=== PATIENT | male | born 1960 ===

== ENCOUNTER 2016-05-15 20:13 | Emergency (ER) | payer OTHER ==
[2016-05-15 20:13] VITALS: BMI 24.2
[2016-05-15 20:51] VITALS: BP 125/74; PULSE 94; TEMP 97.8; O2SAT 97
--- NOTE | 2016-05-15 21:25 | C.PDOC ---
History Of Present Illness 55 y/omale with hx dm, c/o worsening pain to his right neck/shoulder area that radiates down arm to 2nd and third fingers with a tingling sensation. pt has had this pain for some time, with no specific preceding injury. pt has rx for physical therapy, but hasn't made an appointment yet. pt sts pain worse today. pt not taking any medication for pain. Time Seen by Provider: 05/15/16 20:53 Chief Complaint (Nursing): Upper Extremity Problem/Injury History Per: Patient History/Exam Limitations: no limitations Onset/Duration Of Symptoms: Days Current Symptoms Are (Timing): Worse Quality: Other (tingling) Severity: Moderate Pain Scale Rating Of: 8 Exacerbating Factor(s): Strenuous Use Of Affected Area Past Medical History Reviewed: Historical Data, Nursing Documentation, Vital Signs Vital Signs: Last Vital Signs Temp 97.8 F 05/15/16 20:44 Pulse 94 H 05/15/16 20:44 Resp 16 05/15/16 20:44 BP 125/74 05/15/16 20:44 Pulse Ox 97 05/15/16 21:33 - Medical History PMH: Diabetes Surgical History: Appendectomy Family History: States: Unknown Family Hx - Social History Hx Tobacco Use: Yes Hx Alcohol Use: Yes Hx Substance Use: No - Immunization History Hx Tetanus Toxoid Vaccination: No Hx Influenza Vaccination: No Hx Pneumococcal Vaccination: No Review Of Systems Constitutional: Negative for: Fever, Chills Musculoskeletal: Positive for: Neck Pain, Shoulder Pain, Arm Pain, Hand Pain. Negative for: Back Pain, Foot Pain Skin: Negative for: Rash Neurological: Positive for: Numbness. Negative for: Weakness Physical Exam - Physical Exam Appears: Non-toxic, No Acute Distress Skin: Normal Color, Warm, Dry Head: Atraumatic, Normacephalic Neck: Normal ROM, No Midline Cervical Tenderness, Paracervical Tenderness ( right side) Chest: Symmetrical, No Deformity, No Tenderness Gastrointestinal/Abdominal: Soft, No Tenderness Extremity: Normal ROM, No Tenderness, Other (right trapzius tender to palpatin. from of rue, strenght and sensation intact in rue, non tender to palp in arm, from in joints) Pulses: Left Radial: Normal, Right Radial: Normal Neurological/Psych: Oriented x3, Normal Speech, Normal Motor, Normal Sensation ED Course And Treatment O2 Sat by Pulse Oximetry: 97 Medical Decision Making Medical Decision Making: right arm/neck pain with tingling- likely cervical radiculopathy. will tx with nsaid and f/u with pmd for pt and outpatient mri pt feeling better after toradol, will d/c 945 pm Disposition Counseled Patient/Family Regarding: Diagnosis, Need For Followup, Rx Given - Disposition Disposition: HOME/ ROUTINE Disposition Time: 21:45 Condition: GOOD Additional Instructions: Follow up with your doctor on Wednesday and make an appointment for physical therapy. Take naproxen as prescribed. Return to ER for any worsening symptoms Prescriptions: Naproxen 500 mg PO BID #12 tab Forms: Gen Discharge Inst Polish - Clinical Impression Clinical Impression: Cervical radiculopathy
[2016-05-15 22:11] VITALS: RESP 20
== END 2016-05-15 22:10 | disposition home or self-care (01) ==
LOC: C.ER 20:13
DX: M54.12 Radiculopathy, cervical region (principal)

== ENCOUNTER 2017-03-18 16:13 | Emergency (ER) | payer OTHER ==
[2017-03-18 16:13] VITALS: BMI 24.2
[2017-03-18 17:18] VITALS: O2SAT 99
--- NOTE | 2017-03-18 18:25 | C.PDOC ---
Time Seen by Provider: 03/18/17 17:20 Chief Complaint (Nursing): Back Pain Past Medical History Vital Signs: Last Vital Signs Temp 97.9 F 03/18/17 17:15 Pulse 74 03/18/17 17:15 Resp 14 03/18/17 17:15 BP 108/68 03/18/17 17:15 Pulse Ox 99 03/18/17 17:15 - Medical History PMH: Diabetes Surgical History: Appendectomy Family History: States: Unknown Family Hx - Social History Hx Tobacco Use: Yes Hx Alcohol Use: Yes Hx Substance Use: No - Immunization History Hx Tetanus Toxoid Vaccination: No Hx Influenza Vaccination: No Hx Pneumococcal Vaccination: No ED Course And Treatment O2 Sat by Pulse Oximetry: 99 - Radiology CXR: Interpreted by Me CXR Interpretation: Yes: No Acute Disease Progress Note: motrin/ice packs to L trapezius area Reevaluation Time: 18:25 Reassessment Condition: Improved Medical Decision Making Medical Decision Making: L trapezius strain, no lung issues. cxr neg. Disposition Doctor Will See Patient In The: Office Counseled Patient/Family Regarding: Studies Performed, Diagnosis - Disposition Disposition: HOME/ ROUTINE Disposition Time: 18:25 Condition: GOOD - Clinical Impression Clinical Impression: Musculoskeletal pain
[2017-03-18 18:43] VITALS: BP 109/77; PULSE 75; RESP 20; TEMP 98
--- NOTE | 2017-03-18 19:08 | RAD ---
HISTORY: L trapezius discomfort after cough COMPARISON: Chest x-ray performed 01/01/16 TECHNIQUE: Chest PA and lateral FINDINGS: LUNGS: Left hilar prominence. No focal consolidation. Please note that chest x-ray has limited sensitivity for the detection of pulmonary masses. PLEURA: No significant pleural effusion identified. No definite pneumothorax . CARDIOVASCULAR: The cardiomediastinal silhouette appears within normal limits of size. OSSEOUS STRUCTURES: No acute osseous abnormality identified. VISUALIZED UPPER ABDOMEN: Unremarkable. OTHER FINDINGS: None. IMPRESSION: Left hilar prominence. No focal consolidation, significant pleural effusion, or definite pneumothorax identified.
== END 2017-03-18 18:43 | disposition home or self-care (01) ==
LOC: C.ER 16:13
DX: M79.1 Myalgia (principal)

== ENCOUNTER 2017-03-30 10:35 | Emergency (ER) | payer OTHER ==
[2017-03-30 10:36] VITALS: BMI 24.2
[2017-03-30 10:52] VITALS: BP 137/80; PULSE 75; RESP 18; TEMP 98.1; O2SAT 99
--- NOTE | 2017-03-30 11:43 | C.PDOC ---
History Of Present Illness 56 year old male presents to the ED for re-evaluation of left upper back pain around scapular area gradually developed for over 1 week. Pain is localized, non -radiating and worse with movement. Pt admits, was seen here few days ago, had imaging with normal findings and given Rx that was unable to fill out. Otherwise , denies fever, chills, CP, SOB, dyspnea, diaphoresis, palpitation, cough, abd. pain, N/V/D, back pain, UTI sx. denies known trauma or injury. Ambulate to ED for evaluation, not in any apparent distress. Time Seen by Provider: 03/30/17 11:25 Chief Complaint (Nursing): Back Pain History Per: Patient Past Medical History Reviewed: Historical Data, Nursing Documentation, Vital Signs Vital Signs: Last Vital Signs Temp 98.1 F 03/30/17 10:49 Pulse 75 03/30/17 10:49 Resp 18 03/30/17 10:49 BP 137/80 03/30/17 10:49 Pulse Ox 99 03/30/17 11:43 - Medical History PMH: Diabetes Surgical History: Appendectomy Family History: States: Unknown Family Hx - Social History Hx Tobacco Use: Yes Hx Alcohol Use: No Hx Substance Use: No - Immunization History Hx Tetanus Toxoid Vaccination: No Hx Influenza Vaccination: No Hx Pneumococcal Vaccination: No Review Of Systems Except As Marked, All Systems Reviewed And Found Negative. Constitutional: Negative for: Fever, Chills Eyes: Negative for: Vision Change ENT: Negative for: Throat Pain, Throat Swelling Cardiovascular: Negative for: Chest Pain, Palpitations, Light Headedness Respiratory: Negative for: Cough, Shortness of Breath, Wheezing Gastrointestinal: Negative for: Nausea, Vomiting, Abdominal Pain Musculoskeletal: Positive for: Back Pain. Negative for: Neck Pain Skin: Negative for: Rash Neurological: Negative for: Weakness, Numbness, Altered Mental Status, Headache , Dizziness Physical Exam - Physical Exam Appears: Well, Non-toxic, No Acute Distress Skin: Normal Color, Warm, Dry, No Rash Head: Normacephalic Eye(s): bilateral: PERRL Nose: No Flaring Neck: Trachea Midline, No Midline Cervical Tenderness, No Paracervical Tenderness, No Step Off Deformity, Supple Chest: Symmetrical, No Deformity, No Tenderness, No Ecchymosis, No Subcutaneous Emphysema Cardiovascular: Rhythm Regular Respiratory: No Decreased Breath Sounds, No Accessory Muscle Use, No Stridor, No Wheezing Gastrointestinal/Abdominal: Soft, No Tenderness Back: No CVA Tenderness, Other (mild Left periscapular tenderness, no edema, no skin cahnges, no palpable defomrity.) Extremity: Normal ROM, No Deformity, No Swelling Neurological/Psych: Oriented x3, Normal Speech ED Course And Treatment O2 Sat by Pulse Oximetry: 99 Pulse Ox Interpretation: Normal Progress Note: On re-eval, pt is afebrile, hemodynamicaly stable. NOn-toxic. PulseOx 99% RA. ENT: No acute findings. Neck: Supple, (-) midline tenderness, (-) JVD, (-) carotid bruits B/L. Lungs: CTA B/L, BS equal B/L. CVS: (+)S1S2, reg. Abd: benign. back: (-) CVA tenderness. Previous records from 03/18/17 review, CXR- normal study. Pt has clinical findings c/w left upper back strain. Pt advised. ref. to f/u with PMD in 2-3 days for re-eavl. return if any new changes. Disposition Counseled Patient/Family Regarding: Diagnosis, Need For Followup, Rx Given - Disposition Referrals: [facility] at [facility] [Outside] Disposition: HOME/ ROUTINE Disposition Time: 11:43 Condition: STABLE Additional Instructions: Light duty to back area Take medication as prescribed follow up with PMD in 2-3 days for re-evaluation. return to D if any worsening or new changes Prescriptions: Methocarbamol [Robaxin] 500 mg PO TID #14 tab traMADol [Ultram] 50 mg PO TID #7 tab Instructions: Muscle Spasm (ED), Back Pain (ED) Forms: [employer] (Iraqi) Print Language: BULGARIAN - Clinical Impression Clinical Impression: Thoracic back sprain
== END 2017-03-30 12:19 | disposition home or self-care (01) ==
LOC: C.ER 10:35
DX: S23.3XXA Sprain of ligaments of thoracic spine, initial encounter (principal); X58.XXXA Exposure to other specified factors, initial encounter

== ENCOUNTER 2017-04-17 11:14 | Emergency (ER) | payer OTHER ==
[2017-04-17 11:14] VITALS: BMI 24.2
[2017-04-17 11:23] VITALS: BP 108/71; PULSE 60; RESP 16; TEMP 97.6; O2SAT 99
--- NOTE | 2017-04-17 11:42 | C.PDOC ---
History Of Present Illness 56 y/o M p/w back pain x 1.5 months. Patient states he was here for the same and since then, has had 2 colds that made the pain worse. Describes the pain in the L upper back, worse with movement or palpation. Denies fever, chills, dyspnea, vomiting, injury, abdominal pain, diaphoresis. Time Seen by Provider: 04/17/17 11:25 Chief Complaint (Nursing): Back Pain Past Medical History Vital Signs: Last Vital Signs Temp 97.6 F 04/17/17 11:20 Pulse 60 04/17/17 11:20 Resp 16 04/17/17 11:20 BP 108/71 04/17/17 11:20 Pulse Ox 99 04/17/17 11:46 - Medical History PMH: Diabetes, HTN Surgical History: Appendectomy Family History: States: Unknown Family Hx - Social History Hx Tobacco Use: Yes Hx Alcohol Use: Yes Hx Substance Use: No - Immunization History Hx Tetanus Toxoid Vaccination: No Hx Influenza Vaccination: No Hx Pneumococcal Vaccination: No Review Of Systems Except As Marked, All Systems Reviewed And Found Negative. Constitutional: Negative for: Fever Cardiovascular: Negative for: Chest Pain Physical Exam - Physical Exam Additional Physical Exam Comments: Gen: NAD Head: NC Eyes: No scleral icterus ENT: MMM Neck: No midline tenderness, FROM. Chest: No tenderness CV: Regular rate Lungs: CTA b/l Abd: Soft, NT Back: No midline tenderness. Tenderness in L upper back without deformity, edema , crepitus, or rash. Skin: No rash Neuro: Alert, no focal deficit ED Course And Treatment O2 Sat by Pulse Oximetry: 99 Medical Decision Making Medical Decision Making: CXR to rule out underlying pneumonia given two URIs exacerbating this pain of 1.5 months. CXR no acute disease. Return to ED for worsening breathing, vomiting, fever, or any other problem. Disposition - Disposition Referrals: [facility] [Outside] Disposition: HOME/ ROUTINE Disposition Time: 12:17 Condition: STABLE Prescriptions: Ibuprofen [Motrin] 600 mg PO Q6 #25 tab Instructions: Upper Back Pain Forms: [employer] (Nepali) - Clinical Impression Clinical Impression: Thoracic back pain
--- NOTE | 2017-04-17 13:46 | RAD ---
HISTORY: thoracic back pain, 2 recent URIs COMPARISON: Comparison is made with 03/18/2017 TECHNIQUE: Chest PA and lateral FINDINGS: LUNGS: No evidence of new infiltrate or consolidation in the lungs. PLEURA: No significant pleural effusion identified. No pneumothorax apparent. CARDIOVASCULAR: Normal. OSSEOUS STRUCTURES: No significant abnormalities. VISUALIZED UPPER ABDOMEN: Normal. OTHER FINDINGS: None. IMPRESSION: No active disease.
== END 2017-04-17 13:28 | disposition home or self-care (01) ==
LOC: C.ER 11:14
DX: M54.6 Pain in thoracic spine (principal)
CPT/HCPCS: 71046; 96372; 99283; J1885

== ENCOUNTER 2017-05-21 18:23 | Emergency (ER) | payer OTHER ==
[2017-05-21 18:36] VITALS: BMI 23.7
[2017-05-21 18:44] VITALS: RESP 18
--- NOTE | 2017-05-21 19:25 | C.PDOC ---
Chief Complaint (Nursing): Chest Pain Past Medical History Vital Signs: Last Vital Signs Temp 97.8 F 05/21/17 18:39 Pulse 88 05/21/17 18:39 Resp 18 05/21/17 18:39 BP 137/77 05/21/17 18:39 Pulse Ox 99 05/21/17 18:39 - Medical History PMH: Diabetes, HTN Surgical History: Appendectomy Family History: States: Unknown Family Hx - Social History Hx Tobacco Use: Yes Hx Alcohol Use: Yes Hx Substance Use: No - Immunization History Hx Tetanus Toxoid Vaccination: No Hx Influenza Vaccination: Yes (2018) Hx Pneumococcal Vaccination: No ED Course And Treatment O2 Sat by Pulse Oximetry: 99 Disposition - Disposition
--- NOTE | 2017-05-21 19:28 | C.PDOC ---
History Of Present Illness 56 y/o male with no significant PMHx presents to ED for left sided mid back pain that radiates to the front chest with deep respiration. Patient states pain is aggravated by changes in position. Denies cough or SOB. Patient has been presenting to ED for same symptoms for the past month. Chief Complaint (Nursing): Chest Pain History Per: Patient History/Exam Limitations: no limitations Onset/Duration Of Symptoms: Days Current Symptoms Are (Timing): Still Present Quality: "Pain" Associated Symptoms: denies: Nausea, Dyspnea Modifying Factors: None Exacerbating Factors: Movement, Deep Breathing Alleviating Factors: None Recent travel outside of the [place]: No Past Medical History Reviewed: Historical Data, Nursing Documentation, Vital Signs Vital Signs: Last Vital Signs Temp 98.4 F 05/21/17 20:47 Pulse 73 05/21/17 20:47 Resp 18 05/21/17 20:47 BP 116/81 05/21/17 20:47 Pulse Ox 98 05/21/17 20:47 - Medical History PMH: Diabetes, HTN Surgical History: Appendectomy Family History: States: Unknown Family Hx - Social History Hx Tobacco Use: Yes Hx Alcohol Use: Yes Hx Substance Use: No - Immunization History Hx Tetanus Toxoid Vaccination: No Hx Influenza Vaccination: Yes (2018) Hx Pneumococcal Vaccination: No Review Of Systems Constitutional: Negative for: Fever, Chills Respiratory: Negative for: Cough, Shortness of Breath Gastrointestinal: Negative for: Nausea, Vomiting, Abdominal Pain, Diarrhea Musculoskeletal: Positive for: Back Pain (Left sided mid back) Neurological: Negative for: Weakness, Numbness Physical Exam - Physical Exam Appears: Well, Non-toxic Skin: Normal Color, Warm, Dry Head: Atraumatic, Normacephalic Eye(s): bilateral: Normal Inspection Oral Mucosa: Moist Neck: Supple Chest: Symmetrical, No Tenderness Cardiovascular: Rhythm Regular (S1S2 within normal limits) Respiratory: No Decreased Breath Sounds, No Rales, No Rhonchi, No Wheezing Gastrointestinal/Abdominal: Soft, No Tenderness Back: Other (Left paraspinal and thoracic spine reproducible pain) Extremity: Normal ROM, No Pedal Edema Neurological/Psych: Oriented x3, Normal Speech, Normal Cognition ED Course And Treatment O2 Sat by Pulse Oximetry: 99 (RA) Pulse Ox Interpretation: Normal Medical Decision Making Medical Decision Making: Impression: Musculoskeletal back pain. Ordered CXR and EKG. Administered Toradol and Flexeril. EKG Results: - Normal sinus rhythm at 72bpm - S-T within normal limits - Mild LAD Disposition - Disposition Referrals: [facility] [Outside] Disposition: HOME/ ROUTINE Disposition Time: 06:45 Condition: FAIR Prescriptions: Cyclobenzaprine [Flexeril] 5 mg PO TID #15 tab Naproxen [Naprosyn] 500 mg PO BID #20 tablet Naproxen 500 mg PO BID #20 ect Instructions: Upper Back Pain Forms: Gen Discharge Inst Tongan, [employer] (Bengali) Print Language: CAPE VERDEAN - Clinical Impression Clinical Impression: Upper back pain on left side, Thoracic back sprain - Scribe Statement The provider has reviewed the documentation as recorded by the Scribjonna Mendez All medical record entries made by the Swatiibjonna were at my direction and personally dictated by me. I have reviewed the chart and agree that the record accurately reflects my personal performance of the history, physical exam, medical decision making, and the department course for this patient. I have also personally directed, reviewed, and agree with the discharge instructions and disposition.
[2017-05-21 20:47] VITALS: BP 116/81; PULSE 73; TEMP 98.4
[2017-05-22 06:45] VITALS: O2SAT 99
--- NOTE | 2017-05-22 08:57 | RAD ---
HISTORY: COMPARISON: 04/17/2017. TECHNIQUE: Chest PA and lateral FINDINGS: LINES AND TUBES: None. LUNG AND PLEURA: The lungs are well inflated and clear. HEART AND MEDIASTINUM: The heart is not enlarged. The hilar and mediastinal contours are within normal limits. SKELETAL STRUCTURES: The bony structures are within normal limits for the patient's age. VISUALIZED UPPER ABDOMEN: Normal. OTHER FINDINGS: None. IMPRESSION: No active pulmonary disease.
== END 2017-05-21 21:22 | disposition home or self-care (01) ==
LOC: C.ER 18:23
DX: S23.3XXA Sprain of ligaments of thoracic spine, initial encounter (principal); X58.XXXA Exposure to other specified factors, initial encounter; E11.9 Type 2 diabetes mellitus without complications; I10 Essential (primary) hypertension; Z72.0 Tobacco use
CPT/HCPCS: 71046; 96372; 99285; J1885

== ENCOUNTER 2017-05-25 15:11 | Emergency (ER) | payer OTHER ==
[2017-05-25 15:12] VITALS: BMI 24.2
--- NOTE | 2017-05-25 16:52 | C.PDOC ---
History Of Present Illness <Tommy Espinoza - Last Filed: 05/25/17 18:29> <Hernando Ealge - Last Filed: 05/25/17 18:48> Patient is a 56 year old malagasy-speaking patient with past medical history of diabetes and elevated cholesterol, who presents to the ED with complaints of back pain that radiates to his chest. Patient reports that his back pain makes it difficult to breath. Patient admits to generalized body pain. Patient states that is upper back pain radiates to his left side. (Joi Espinozasirena Mustafa) History Per: Patient History/Exam Limitations: no limitations Current Symptoms Are (Timing): Still Present Severity: Moderate Pain Scale Rating Of: 7 Location: Upper back pain, at the level of lower scapula angle Quality: tender Reports Recently: Seen In ED Recent travel outside of the [place]: No Additional History Per: Patient <Joi Espinozalouaparna Mustafa - Last Filed: 05/25/17 18:29> <Hernando Eagle Augustine - Last Filed: 05/25/17 18:48> Time Seen by Provider: 05/25/17 16:27 Chief Complaint (Nursing): Back Pain Past Medical History - Medical History PMH: Diabetes, HTN Surgical History: Appendectomy Family History: States: Unknown Family Hx - Social History Hx Tobacco Use: Yes Hx Alcohol Use: Yes Hx Substance Use: No - Immunization History Hx Tetanus Toxoid Vaccination: No Hx Influenza Vaccination: Yes (2018) Hx Pneumococcal Vaccination: No <Tommy Espinoza - Last Filed: 05/25/17 18:29> Vital Signs: Last Vital Signs Temp 97.7 F 05/25/17 15:25 Pulse 88 05/25/17 15:25 Resp 20 05/25/17 15:25 BP 112/68 05/25/17 15:25 Pulse Ox 98 05/25/17 18:43 Review Of Systems Constitutional: Negative for: Fever, Chills, Sweats, Weakness, Malaise Cardiovascular: Positive for: Chest Pain. Negative for: Palpitations, Edema, Light Headedness Respiratory: Negative for: Cough, Shortness of Breath, Hemoptysis, SOB with Excertion, Pleuritic Pain, Sputum Gastrointestinal: Negative for: Nausea, Vomiting, Abdominal Pain, Diarrhea Genitourinary: Negative for: Dysuria, Frequency, Hematuria Musculoskeletal: Positive for: Back Pain Neurological: Negative for: Weakness, Numbness, Incoordination, Confusion, Headache <AlexisJoisirena Ramsey - Last Filed: 05/25/17 18:29> Physical Exam - Physical Exam Appears: No Acute Distress Skin: Normal Color, Warm Head: Atraumatic, Normacephalic Eye(s): bilateral: EOMI Chest: Symmetrical Cardiovascular: Rhythm Regular, No Murmur Respiratory: Normal Breath Sounds, No Decreased Breath Sounds, No Accessory Muscle Use, No Rales, No Rhonchi, No Stridor, No Wheezing, No Plerual Rub Gastrointestinal/Abdominal: Normal Exam, Bowel Sounds, Soft, No Tenderness, No Distention, No Guarding, No Rebound Back: Normal Inspection, Decreased ROM, Other (Upper thoracic back pain, at the level of the lower angle of the scapula ) Extremity: Bilateral: Atraumatic Neurological/Psych: Oriented x3, Normal Speech, Normal Cognition <Alexis,Joisirena E - Last Filed: 05/25/17 18:29> ED Course And Treatment - Laboratory Results Result Diagrams: 05/25/17 17:34 05/25/17 17:34 ECG Interpretation: Normal Interpretation Of ECG: Normal sinus rhythm, Left axis deviation. No EKG changes from EKG on 01/01/2016 Rate From EC O2 Sat by Pulse Oximetry: 98 Progress Note: Patient states that improved symptoms Reevaluation Time: 18:00 Reassessment Condition: Improved <Tommy Espinoza - Last Filed: 05/25/17 18:29> - Laboratory Results Result Diagrams: 05/25/17 17:34 05/25/17 17:34 <Hernando Eagle - Last Filed: 05/25/17 18:48> Disposition Discussed With : Hernando Eagle - Disposition Disposition Time: 18:39 <Tommy Espinoza - Last Filed: 05/25/17 18:29> <Hernando Eagle - Last Filed: 05/25/17 18:48> - Disposition Referrals: at [facility] [Outside] Disposition: HOME/ ROUTINE Condition: GOOD Additional Instructions: Please discharge patient home Please follow up with your primary care physician as scheduled and obtain pain management referral in 2 days Please start physical therapy as scheduled for 06/25/17 Please take a pain medication as prescribed Please take care Prescriptions: oxyCODONE/Acetaminophen [Percocet 5/325 mg Tab] 1 ea PO TID PRN #10 tab PRN Reason: Pain, Moderate (4-7) Forms: Gen Discharge Inst Telugu, [facility] (Telugu) Print Language: INDONESIAN - Clinical Impression Clinical Impression: Thoracic back pain, Thoracic back pain
[2017-05-25] MEDS ORDERED: Oxycodone/Acetaminophen 5/325 mg Tab PO STA (17:26)
[2017-05-25] MEDS ORDERED: Oxycodone/Acetaminophen 5/325 mg Tab ONE (17:40)
[2017-05-25 17:47] LABS: BASO # 0.1 K/uL (0.0-0.2); BASO % 0.6 % (0.0-2.0); EOS # 0.3 K/uL (0.0-0.7); EOS % 3.1 % (0.0-4.0); HEMOGLOBIN 14.9 g/dL (12.0-18.0); LYMPH # 2.2 K/uL (1.0-4.3); LYMPH % 21.3 % (20.0-40.0); MEAN CELL VOLUME 97.8 fL (80.0-94.0); MEAN CORPUSCULAR HEMOGLOBIN 34.6 pg (27.0-31.0); MEAN CORPUSCULAR HGB CONC 35.4 g/dL (33.0-37.0); MEAN PLATELET VOLUME 8.8 fL (7.2-11.7); MONO # 0.5 K/uL (0.0-0.8); MONO % 4.8 % (0.0-10.0); NEUT # 7.1 K/uL (1.8-7.0); NEUT % 70.2 % (50.0-75.0); RBC 4.29 Mil/uL (4.40-5.90); RED CELL DISTRIBUTION WIDTH 11.5 % (11.5-14.5); WHITE BLOOD COUNT 10.2 K/uL (4.8-10.8)
[2017-05-25 17:55] LABS: ALB/GLOB RATIO 1.5 (1.0-2.1); ALT/SGPT 27 U/L (21-72); AST/SGOT 29 U/L (17-59); BLOOD UREA NITROGEN 19 mg/dL (9-20); CALCIUM 9.6 mg/dl (8.6-10.4); GFR AFRICAN-AMERICAN > 60; GFR NON-AFRICAN AMERICAN > 60
--- NOTE | 2017-05-25 18:24 | RAD ---
HISTORY: SOB COMPARISON: 05/21/2017 TECHNIQUE: Chest PA and lateral FINDINGS: LUNGS: No active pulmonary disease. PLEURA: No significant pleural effusion identified. No pneumothorax apparent. CARDIOVASCULAR: Normal. OSSEOUS STRUCTURES: No significant abnormalities. VISUALIZED UPPER ABDOMEN: Normal. OTHER FINDINGS: None. IMPRESSION: No active disease. No significant interval change compared to the prior examination(s).
[2017-05-25 19:13] VITALS: BP 119/82; PULSE 84; RESP 17; TEMP 97.9; O2SAT 99
--- NOTE | 2017-05-28 17:15 | CARD ---
APPROVED REPORT EKG Measurement Heart [id number] <Conclusion> Normal sinus rhythm Left axis deviation Normal ECG for age
--- NOTE | 2017-05-28 17:16 | CARD ---
APPROVED REPORT EKG Measurement Heart [id number] <Conclusion> Normal sinus rhythm Left axis deviation Otherwise normal ECG
== END 2017-05-25 19:12 | disposition home or self-care (01) ==
LOC: C.ER 15:11
DX: M54.6 Pain in thoracic spine (principal)
CPT/HCPCS: 71046; 80053; 84484; 85025; 85378; 96374; 99283; J1885